=== PATIENT | male | born 1980 | race Caucasian/White ===

== ENCOUNTER 2017-12-27 19:49 | Emergency (ER) | payer OTHER ==
[2017-12-27] MEDS ORDERED: AZITHROMYCIN 250 MG TAB PO ONE (22:13)
--- NOTE | 2017-12-27 22:14 | EDPHY ---
H & P Time Seen by Provider: 12/27/17 20:00 HPI/ROS: CHIEF COMPLAINT: Right facial pain HISTORY OF PRESENT ILLNESS: Patient is a 37-year-old male with no significant past medical history who reports that he was playing soccer yesterday and he collided with another kid club attendant at high speeds butting their heads together. Denies any loss of consciousness or vision changes but does report significant right-sided facial pain and swelling and additionally reports numbness to the right upper lip. REVIEW OF SYSTEMS: Constitutional: No fever, no chills. Eyes: No discharge. ENT: No sore throat. Cardiovascular: No chest pain, no palpitations. Respiratory: No cough, no shortness of breath. Gastrointestinal: No abdominal pain, no vomiting. Genitourinary: No hematuria. Musculoskeletal: No back pain. Skin: No rashes. Neurological: No headache. Smoking Status: Never smoked Physical Exam: General Appearance: Alert and no distress. Eyes: Pupils equal and round no injection. Extraocular muscles intact Respiratory: Chest is nontender, lungs are clear to auscultation. Cardiac: regular rate and rhythm. Gastrointestinal: Abdomen is soft and nontender, no masses, bowel sounds normal. Musculoskeletal: Neck is supple and nontender. Extremities have full range of motion and are nontender. Skin: No rashes or lesions. Head: No Hughes signs or raccoon eyes. Tenderness to the right zygomatic arch in decreased sensation to the right upper lip. Normal dental alignment Constitutional: Initial Vital Signs Temperature (C) 37 C 12/27/17 19:52 Heart Rate 88 12/27/17 19:52 Respiratory Rate 95 H 12/27/17 19:52 Blood Pressure 129/76 H 12/27/17 19:52 O2 Sat (%) 95 12/27/17 19:52 O2 Delivery Mode Room Air Allergies/Adverse Reactions: No Known Allergies Allergy (Unverified 12/27/17 19:52) Home Medications: Medication Instructions Recorded Azithromycin [Zithromax] 250 mg PO DAILY #4 tab 12/27/17 Medical Decision Making - Diagnostics Imaging Results: Imaging Impressions Face CT 12/27/17 21:03 Impression: 1. Right orbital fractures involving the lateral wall, anterior orbital rim, and nondisplaced right orbital floor fracture. 2. Depressed right zygomatic arch fracture. 3. Comminuted displaced fractures of the anterior and lateral hodges of the right maxillary sinus. 4. Polypoid thickening right maxillary sinus. 5. No mandibular fracture or pterygoid fracture. Findings and recommendations discussed with Emergency Department Physician Division Road Supervisor, Arun Calles PA-C, at 2120 hours, on December 27, 2017. Final report concurs with initial preliminary interpretation. ED Course/Re-evaluation: 37-year-old male here with zygomatic arch fracture and orbital wall fracture. I discussed case Dr. Kirkland on-call with ENT and agrees to follow up the patient closely in his office. He did recommend starting Zithromax and this was initiated in the emergency room. Patient is agreeable with this plan. I did consider open globe, blowout fracture, LeFort fracture - Data Points Medications Given: Discontinued Medications Azithromycin (Zithromax) 500 mg PO EDNOW ONE PRN Reason: Protocol Stop: 12/27/17 22:14 Last Admin: 12/27/17 22:25 Dose: 500 mg Departure - Departure Disposition: Home, Routine, Self-Care Clinical Impression: Zygomatic arch fracture, Orbital fracture Condition: Good Instructions: Facial Fracture (ED) Additional Instructions: Take the antibiotic as instructed. Follow up with Dr. Kirkland early next week. Call his number Saturday morning for an appointment early next week. No nose blowing. Return to ER for any worsening symptoms. Referrals: NONE *PRIMARY CARE P,. [Primary Care Provider] - As per Instructions Edu Kirkland MD [Medical Doctor] - As per Instructions Prescriptions: Azithromycin [Zithromax] 250 mg PO DAILY #4 tab
[2017-12-27 22:28] VITALS: BP 123/74
== END 2017-12-27 22:28 | disposition home or self-care (01) ==
DX: S02.40EA Zygomatic fracture, right side, initial encounter for closed fracture (principal); S02.31XA Fracture of orbital floor, right side, initial encounter for closed fracture; W50.0XXA Accidental hit or strike by another person, initial encounter; Y93.66 Activity, soccer; Y92.9 Unspecified place or not applicable; Y99.9 Unspecified external cause status